=== PATIENT | male | born 1960 | race Caucasian/White ===

== ENCOUNTER 2017-07-23 10:17 | Emergency (ER) | payer OTHER ==
[2017-07-23] MEDS ORDERED: Sodium Chloride 0.9% 10 ML Syringe FLUSH PRN (10:26)
[2017-07-23] MEDS ORDERED: Sodium Chloride 0.9% 2.5 ML Syringe FLUSH PRN (10:26)
--- NOTE | 2017-07-23 10:28 | EDM.PDOC ---
ED HPI GENERAL MEDICAL PROBLEM - General Chief Complaint: Chest Pain Stated Complaint: CHEST PAIN Time Seen by Provider: 07/23/17 10:24 Source of Information: Reports: Patient History Limitations: Reports: No Limitations - History of Present Illness INITIAL COMMENTS - FREE TEXT/NARRATIVE: HISTORY AND PHYSICAL: []57-year-old male presenting with chest pain right-sided trending towards the mid sternum and is through to the shoulder blades in the back History of Present Illness: []Started yesterday afternoon Review of Systems: As per history of present illness and below otherwise all systems reviewed and negative. Past medical history: As per history of present illness and as reviewed below otherwise noncontributory. Surgical history: As per history of present illness and as reviewed below otherwise noncontributory. Social history: No reported history of drug or alcohol abuse. Family history: As per history of present illness and as reviewed below otherwise noncontributory. Physical exam: Alert oriented male answering questions appropriately speaking in full sentences without any shortness of breath. HEENT: Atraumatic, normocehpalic, pupils reactive, negative for conjunctival pallor or scleral icterus, mucous membranes moist, throat clear, neck supple, nontender, trachea midline. Lungs: Clear to auscultation, breath sounds equal bilaterally, chest non tender. Heart: S1S2, regular, negative for clicks, rubs, or JVD. Abdomen: Soft, nondistended, nontender. Negative for masses or hepatossplenmegaly. Negative for costovertebral tenderness. Pelvis: Stable nontender. Genitourinary: Deferred. Rectal: Deferred Extremities: Atraumatic, negative for cords or calf pain. Neurovascular unremarkable. Neuro: Awake, alert, oriented. Cranial nerves II through XII unremarkable. Cerebellum unremarkable. Motor and sensory unremarkable throughout. Exam nonfocal. Discussed with this patient that all his cardiac enzymes were negative chest x- ray and ultrasound were also negative for any cardiac involvement. Although enzymes are negative at this time would like to obtain second set and have patient stay for observation. He has verbalized understanding of my concerns and declined the opportunity for observation Diagnostics: [] CBC CMP amylase lipase EKG chest x-ray: Therapeutics: [] Impression: []Atypical chest pain Plan: []Discharged to home 1 aspirin daily Any adverse changes in his health he needs to immediately return for reevaluation Definitive disposition and diagnosis as appropriate pending reevaluation and review of above. Onset: Sudden Duration: Hour(s): (15) Location: Reports: Chest Quality: Reports: Ache Severity: Moderate Improves with: Reports: None Worsens with: Reports: None Associated Symptoms: Reports: Chest Pain Right Chest Pain Score (Numeric/FACES): 6 - Related Data Allergies Allergy/AdvReac Type Severity Reaction Status Date / Time No Known Allergies Allergy Verified 07/23/17 10:25 Home Meds: Home Meds Omeprazole Magnesium [Prilosec Otc] 20 mg PO ASDIRECTED 07/23/17 [History] ED ROS GENERAL - Review of Systems Review Of Systems: ROS reveals no pertinent complaints other than HPI. ED EXAM, GENERAL - Physical Exam Exam: See Below (see dictation) Course - Vital Signs Last Recorded V/S: Last Vital Signs Temp 36.4 C 07/23/17 10:20 Pulse 61 07/23/17 10:20 Resp 15 07/23/17 10:20 BP 164/99 H 07/23/17 10:20 Pulse Ox 97 07/23/17 10:20 - Orders/Labs/Meds Orders: Active Orders 24 hr Category Date Time Status EKG Documentation Completion [RC] STAT Care 07/23/17 10:26 Active Abdomen Ltd [US] Stat Exams 07/23/17 10:28 Taken Chest 1V Frontal [CR] Stat Exams 07/23/17 10:27 Taken UA W/MICROSCOPIC [URIN] Stat Lab 07/23/17 10:27 Ordered Sodium Chloride 0.9% [Saline Flush] Med 07/23/17 10:26 Active 10 ml FLUSH ASDIRECTED PRN Sodium Chloride 0.9% [Saline Flush] Med 07/23/17 10:26 Active 2.5 ml FLUSH ASDIRECTED PRN Saline Lock Insert [OM.PC] Stat Oth 07/23/17 10:26 Ordered Medication Orders Sodium Chloride (Saline Flush) 10 ml FLUSH ASDIRECTED PRN PRN Reason: Keep Vein Open Sodium Chloride (Saline Flush) 2.5 ml FLUSH ASDIRECTED PRN PRN Reason: Keep Vein Open Labs: Laboratory Tests 07/23/17 07/23/17 07/23/17 Range/Units 10:26 10:26 10:26 WBC 6.05 (4.0-11.0) K/uL RBC 4.77 (4.50-5.90) M/uL Hgb 15.2 (13.0-17.0) g/dL Hct 42.6 (38.0-50.0) % MCV 89.3 (80.0-98.0) fL MCH 31.9 (27.0-32.0) pg MCHC 35.7 (31.0-37.0) g/dL RDW Std Deviation 42.0 (28.0-62.0) fl RDW Coeff of Clary 13 (11.0-15.0) % Plt Count 212 (150-400) K/uL MPV 10.80 (7.40-12.00) fL Neut % (Auto) 58.2 (48.0-80.0) % Lymph % (Auto) 28.1 (16.0-40.0) % Preston % (Auto) 7.3 (0.0-15.0) % Eos % (Auto) 5.6 (0.0-7.0) % Baso % (Auto) 0.8 (0.0-1.5) % Neut # (Auto) 3.5 (1.4-5.7) K/uL Lymph # (Auto) 1.7 (0.6-2.4) K/uL Preston # (Auto) 0.4 (0.0-0.8) K/uL Eos # (Auto) 0.3 (0.0-0.7) K/uL Baso # (Auto) 0.1 (0.0-0.1) K/uL Nucleated RBC % 0.0 /100WBC Nucleated RBCs # 0 K/uL INR 1.08 Sodium 141 (136-148) mmol/L Potassium 4.6 (3.5-5.1) mmol/L Chloride 108 H (98-107) mmol/L Carbon Dioxide 27.2 (21.0-32.0) mmol/L BUN 15 (7.0-18.0) mg/dL Creatinine 1.2 (0.8-1.3) mg/dL Est Cr Clr Drug Dosing 73.21 mL/min Estimated GFR (MDRD) > 60.0 ml/min Glucose 111 H (74-106) mg/dL Calcium 8.9 (8.5-10.1) mg/dL Total Bilirubin 0.4 (0.2-1.0) mg/dL AST 20 (15-37) IU/L ALT 39 (14-63) IU/L Alkaline Phosphatase 63 (46-116) U/L Troponin I < 0.050 (0.000-0.056) ng/mL Total Protein 7.8 (6.4-8.2) g/dL Albumin 4.1 (3.4-5.0) g/dL Globulin 3.7 H (2.0-3.5) g/dL Albumin/Globulin Ratio 1.1 L (1.3-2.8) Amylase 27 (25-115) U/L Lipase 145 (73-393) U/L TSH 3rd Generation 2.35 (0.36-3.74) uIU/mL Meds: Medications Generic Name Dose Route Start Last Admin Trade Name Freq PRN Reason Stop Dose Admin Sodium Chloride 10 ml 07/23/17 10:26 Saline Flush FLUSH ASDIRECTED PRN Keep Vein Open Sodium Chloride 2.5 ml 07/23/17 10:26 Saline Flush FLUSH ASDIRECTED PRN Keep Vein Open Departure - Departure Time of Disposition: 12:10 Disposition: Home, Self-Care 01 Condition: Good Clinical Impression: Atypical chest pain Instructions: Nonspecific Chest Pain Forms: ED Department Discharge Additional Instructions: The following information is given to patients seen in the emergency department who are being discharged to home. This information is to outline your options for follow-up care. We provide all patients seen in our emergency department with a follow-up referral. The need for follow-up, as well as the timing and circumstances, are variable depending upon the specifics of your emergency department visit. If you don't have a primary care physician on staff, we will provide you with a referral. We always advise you to contact your personal physician following an emergency department visit to inform them of the circumstance of the visit and for follow-up with them and/or the need for any referrals to a consulting specialist. The emergency department will also refer you to a specialist when appropriate. This referral assures that you have the opportunity for followup care with a specialist. All of these measure are taken in an effort to provide you with optimal care, which includes your followup. Under all circumstances we always encourage you to contact your private physician who remains a resource for coordinating your care. When calling for followup care, please make the office aware that this follow-up is from your recent emergency room visit. If for any reason you are refused follow-up, please contact the [facility] emergency department at and asked to speak to the emergency department charge nurse. You were offered an opportunity for observation for 24 hours declined this opportunity and fully aware of my concerns One aspirin daily Follow-up with your primary care provider in 3 days Return immediately to the emergency department should you have any worsening of your symptoms - My Orders Last 24 Hours: My Active Orders 07/23/17 10:26 EKG Documentation Completion [RC] STAT Sodium Chloride 0.9% [Saline Flush] 10 ml FLUSH ASDIRECTED PRN Sodium Chloride 0.9% [Saline Flush] 2.5 ml FLUSH ASDIRECTED PRN Saline Lock Insert [OM.PC] Stat 07/23/17 10:27 Chest 1V Frontal [CR] Stat UA W/MICROSCOPIC [URIN] Stat 07/23/17 10:28 Abdomen Ltd [US] Stat - Assessment/Plan Last 24 Hours: My Active Orders 07/23/17 10:26 EKG Documentation Completion [RC] STAT Sodium Chloride 0.9% [Saline Flush] 10 ml FLUSH ASDIRECTED PRN Sodium Chloride 0.9% [Saline Flush] 2.5 ml FLUSH ASDIRECTED PRN Saline Lock Insert [OM.PC] Stat 07/23/17 10:27 Chest 1V Frontal [CR] Stat UA W/MICROSCOPIC [URIN] Stat 07/23/17 10:28 Abdomen Ltd [US] Stat
[2017-07-23 10:55] LABS: CHLORIDE,CL 108 mmol/L (98-107); SODIUM,NA 141 mmol/L (136-148)
[2017-07-23] MEDS ORDERED: Aspirin 81 MG Tab.Chew PO ONE (12:11)
--- NOTE | 2017-07-25 11:58 | CR ---
EXAM DATE: 07/23/17 PATIENT'S AGE: 57 Patient: ASHLEIGH GONZALEZ Facility: [place], [place] Site . Site : 1960 Study: XRay Chest [id number]/26/2018 10:38:42 AM Ordering Physician: Doctor Chavez Final Report: INDICATION: Chest pain; shortness of breath. COMPARISON: None. TECHNIQUE: Portable AP chest. FINDINGS: Normal size cardiac silhouette. Clear lung downs without evidence of acute pneumonic infiltrates or CHF. No pneumothorax or pleural effusion. IMPRESSION: Negative portable AP chest. Dictated by Saranya Tipton MD @ Jul 23 2017 10:50AM (Electronic Signature) Report Signed by Proxy. AMANDEEP
--- NOTE | 2017-07-25 12:13 | US ---
EXAM DATE: 07/23/17 PATIENT'S AGE: 57 Patient: ASHLEIGH GONZALEZ Facility: [place], [place] Site . Site : 1960 Study: US Abdomen [id number]/26/2018 11:31:08 AM Ordering Physician: Doctor Chavez Final Report: INDICATION: Right upper quadrant abdominal pain; back pain. COMPARISON: Chest radiograph same date. TECHNIQUE: Ultrasound examination of the right upper quadrant of the abdomen. FINDINGS: No focal hepatic pathology. Gallbladder is unremarkable. Nondilated common bile duct measuring 2.8 mm in diameter. Normal thickness of the gallbladder wall. No pericholecystic fluid collections. Sonographic Hair`s sign is negative. Proximal abdominal aorta is measuring 15 mm in diameter. Right kidney is measuring 12.5 cm in the maximum vertical dimension without any obstructive uropathy or perinephric pathology. No pancreatic pathology. IMPRESSION: Normal ultrasound examination of the right upper quadrant of the abdomen. Dictated by Saranya Tipton MD @ Jul 23 2017 11:52AM (Electronic Signature) Report Signed by Proxy. AMANDEEP
== END 2017-07-23 12:16 | disposition home or self-care (01) ==
LOC: MW.ED 10:17
DX: R07.89 Other chest pain (principal); Z79.82 Long term (current) use of aspirin
CPT/HCPCS: 36415; 71045; 76705; 80053; 82150; 83690; 84443; 84484; 85025; 85610; 93005; 99285; A9270; 99283